=== PATIENT | male | born 1970 | race Caucasian/White ===

== ENCOUNTER 2017-05-23 10:51 | Emergency (ER) | payer BC ==
[2017-05-23 12:46] VITALS: BP 133/79
--- NOTE | 2017-05-23 12:51 | UC ---
Respiratory Complaint HPI - HPI Summary HPI Summary: 46 y/o male presents to the urgent care c/o productive cough, fever, body aches , FARIAS, sore throat, mild wheezing and fatigue since 05/20/2017. Pt reports he has been taking Mucinex to alleviate symptoms. He states one his son's had the flu. Pain is 4/10. Pt denies chest pain, dizziness, abdominal pain, N/V/D. Pt used to be a heavy smoker and quit 2 years ago. - History of Current Complaint Chief Complaint: UCRespiratory Stated Complaint: WEAK CONGESTION WHEEZY COUGH HEADACHE Time Seen by Provider: 05/23/17 12:49 Hx Obtained From: Patient Onset/Duration: Gradual Onset, Lasting Days - 4 days, Still Present, Worse Since - 2 days Timing: Constant Severity Initially: Mild Severity Currently: Moderate Pain Intensity: 4 Pain Scale Used: 0-10 Numeric Character: Cough: Productive, Sputum Description: - yellowish Aggravating Factors: Recumbent Position Alleviating Factors: OTC Meds Associated Signs And Symptoms: Positive: Fever, Chills, Wheezing, URI, Nasal Congestion - Risk Factors Pulmonary Embolism Risk Factors: Negative Cardiac Risk Factors: Hypertension, Diabetes Pseudomonas Risk Factors: Negative Tuberculosis Risk Factors: Negative - Allergies/Home Medications Allergies/Adverse Reactions: Allergies Allergy/AdvReac Type Severity Reaction Status Date / Time No Known Allergies Allergy Verified 05/23/17 12:33 Home Medications: Home Medications Guaifen/Phenyleph/Acetaminophn [Mucinex Sinus-Max Severe Cplt] 2 tab PO Q6H PRN 05/23/17 [History Confirmed 05/23/17] PMH/Surg Hx/FS Hx/Imm Hx Previously Healthy: Yes Endocrine History: Diabetes, Dyslipidemia Cardiovascular History: Hypertension - Surgical History Surgical History: Yes Surgery Procedure, Year, and Place: GALLBLADDER REMOVAL; umbilical hernia 2015 [facility] - Family History Known Family History: Positive: Cardiac Disease, Hypertension, Diabetes - Social History Occupation: Employed Full-time Lives: With Family Alcohol Use: None Substance Use Type: None Smoking Status (MU): Former Smoker When Did the Patient Quit Smoking/Using Tobacco: APR 2014 - Immunization History Most Recent Tetanus Shot: "LONG TIME AGO" Review of Systems Constitutional: Fever, Chills, Fatigue, Other - body aches Skin: Negative Eyes: Negative ENT: Sore Throat, Nasal Discharge, Sinus Congestion Respiratory: Shortness Of Breath, Cough - productive, Other - wheezing Cardiovascular: Negative Gastrointestinal: Negative Genitourinary: Negative Motor: Negative Neurovascular: Negative Musculoskeletal: Negative Neurological: Headache Psychological: Negative Is Patient Immunocompromised?: No All Other Systems Reviewed And Are Negative: Yes Physical Exam - Summary Physical Exam Summary: VITAL SIGNS: Reviewed. GENERAL: Patient is a well developed and nourished obese male who is sitting comfortable in the examining table. Patient is not in any acute respiratory distress. HEAD AND FACE: No signs of trauma. No ecchymosis, hematomas or skull depressions. No sinus tenderness. edematous erythematous nasal mucosa with yellowish discharge, EYES: PERRLA, EOMI x 2, No injected conjunctiva, clear watery eyes, no nystagmus. No photophobia. EARS: Hearing grossly intact. Ear canals and tympanic membranes are within normal limits. MOUTH: Positive pharynx with mild erythema, no exudates,no palatal petechiae. no B/L tonsillar enlargement Uvula in midline. NECK: Supple, trachea is midline, Positive anterior cervical lymphadenopathy, no JVD, no carotid bruit, no c-spine tenderness, neck with full ROM. No meningeal signs, no Kernig's or brudzinskis signs. CHEST: Symmetric, no tenderness at palpation LUNGS: positive breath sound B/L. B/L scattered wheezes and ronchi . No crackles or rales. CVS: Regular rate and rhythm, S1 and S2 present, no murmurs or gallops appreciated. ABDOMEN: Soft, non-tender. No signs of distention. No rebound no guarding, and no masses palpated. Bowel sounds are normal. EXTREMITIES: FROM in all major joints, no edema, no cyanosis or clubbing. NEURO: Alert and oriented x 3. No acute neurological deficits. Speech is normal and follows commands. SKIN: Dry and warm Triage Information Reviewed: Yes Vital Signs: Initial Vital Signs Temp 98.2 F 05/23/17 12:41 Pulse 81 05/23/17 12:41 Resp 20 05/23/17 12:41 BP 133/79 05/23/17 12:41 Pulse Ox 96 05/23/17 12:41 Diagnostic Evaluation - Laboratory O2 Sat by Pulse Oximetry: 96 Respiratory Course/Dx - Course Course Of Treatment: 46 y/o male presents to the urgent care c/o productive cough, fever, body aches, FARIAS, sore throat, mild wheezing and fatigue since 2017. Pt reports he has been taking Mucinex to alleviate symptoms. He states one his son's had the flu. Pain is 4/10. Pt denies chest pain, dizziness, abdominal pain, N/V/D. Pt used to be a heavy smoker and quit 2 years ago.Hx obtained. Pt w/ B/L scattered wheezing and rhonchi on examination, O2Sat:96% .Prednisone PO and Duoneb Tx ordered. Given by Nurse. Pt tollerated well Tx and lungs cleared, O2sat :99%. Influenza A&B ordered: result:negative. chest X-ray ordered, Impression:No acute cardiopulmonary disease observed. Pt used to be a heavy smoker. Pt states feeling better after TX. Pt will be tx for Acute Bronchitis, Rx Doxycycline PO , Prednisone taper dose and Albuterol Inhaler and Tessalon tabs PO to alleviate cough. Strongly advised to f/u with his PCP for further management. He may be developing COPD. Pt understood and agreed with D/ C instructions and left the clinic hemodynamically stable. - Differential Dx/Diagnosis Differential Diagnosis/HQI/PQRI: Asthma, Bronchitis, Exacerbation Of COPD, Influenza, Lower Resp Infection, Sinusitis, Other - pneumonia Provider Diagnoses: 1- COPD exacerbation. 2-Acute bronchitis Discharge - Discharge Plan Condition: Stable Disposition: HOME Prescriptions: Albuterol HFA INHALER* [Ventolin HFA Inhaler*] 1 - 2 puff INH Q4H PRN #1 mdi PRN Reason: Wheezing Benzonatate CAP* [Tessalon 100 MG CAP*] 100 mg PO TID PRN #21 cap PRN Reason: Cough DOXYcycline CAP(*) [DOXYcycline 100MG CAP(*)] 100 mg PO BID #20 cap predniSONE TAB* [Deltasone TAB*] 20 mg PO DAILY #8 tab Patient Education Materials: Acute Bronchitis (ED), COPD (Chronic Obstructive Pulmonary Disease) (ED) Forms: *Work Release Referrals: [facility] [facility]ERRAL [Outside] - 3 Days Additional Instructions: 1-Please take full course of antibiotic to avoid resistance. Take Prednisone tabs PO taper zarate starting tomorrow. 2-Take Tessalon PO tabs as directed and use the albuterol inhaler to alleviate cough. Increase fluid intake, rest and eat well. 3- If symptoms do not improve or worsen or your develop SOB with fever and severe wheezing please go immediately to the ER further evaluation and treatment. 4- F/u with your PCP in 2-3 days for further management to see if you are developing COPD
[2017-05-23] MEDS ORDERED: predniSONE TAB* 20 MG PO ONE (13:00)
[2017-05-23] MEDS ORDERED: Albuterol/Ipratropium NEB.SOL* Albuterol 2.5 MG/Ipratropium 0.5 MG 3 ML INH ONE (13:00)
--- NOTE | 2017-05-23 13:23 | RAD ---
HISTORY: Productive cough, fever, shortness of breath COMPARISONS: None VIEWS: 4: Frontal dual-energy and lateral views of the chest. FINDINGS: CARDIOMEDIASTINAL SILHOUETTE: The cardiomediastinal silhouette is normal. KEVIN: The kevin are normal. PLEURA: The costophrenic angles are sharp. No pleural abnormalities are noted. LUNG PARENCHYMA: The lungs are clear. ABDOMEN: The upper abdomen is clear. There is no subphrenic gas. BONES AND SOFT TISSUES: No bone or soft tissue abnormalities are noted. OTHER: None. IMPRESSION: NO ACTIVE CARDIOPULMONARY DISEASE.
== END 2017-05-23 13:47 | disposition home or self-care (01) ==
LOC: UCCORT 10:51
DX: J44.1 Chronic obstructive pulmonary disease with (acute) exacerbation (principal); J20.9 Acute bronchitis, unspecified; J44.0 Chronic obstructive pulmonary disease with (acute) lower respiratory infection; Z87.891 Personal history of nicotine dependence
CPT/HCPCS: 71046; 87502; 99212; A9270-GY; G0463; J7512

== ENCOUNTER 2017-07-26 19:17 | Emergency (ER) | payer BC ==
--- NOTE | 2017-07-26 19:28 | UC ---
Respiratory Complaint HPI - HPI Summary HPI Summary: 47 yo male presents with sinus pain/pressure/congestion, cough, increased work of breathing, and left ear pain for the last 3-4 days. Getting progressively worse. He has not been taking anything OTC. He is not smoking anymore and hasn' t been for 2+ years. Has been using his albuterol inhaler. Has felt feverish, but has not taken his temperature. Denies chest pain, abdominal pain, n/v/d/c. - History of Current Complaint Stated Complaint: WEAK, TROUBLE BREATHING, HEADACHE/CONGESTION Time Seen by Provider: 07/26/17 19:27 Hx Obtained From: Patient Onset/Duration: Gradual Onset Timing: Constant Severity Initially: Mild Severity Currently: Moderate Pain Intensity: 7 Pain Scale Used: 0-10 Numeric Character: Cough: Productive - Allergies/Home Medications Allergies/Adverse Reactions: Allergies Allergy/AdvReac Type Severity Reaction Status Date / Time No Known Allergies Allergy Verified 05/23/17 12:33 PMH/Surg Hx/FS Hx/Imm Hx Endocrine History: Diabetes Cardiovascular History: Hypertension Respiratory History: COPD GI/ History: Gastroesophageal Reflux - Surgical History Surgical History: Yes Surgery Procedure, Year, and Place: GALLBLADDER REMOVAL; umbilical hernia 2015 [facility] - Family History Known Family History: Positive: Cardiac Disease, Hypertension, Diabetes - Social History Occupation: Employed Full-time Lives: With Family Alcohol Use: None Substance Use Type: None Smoking Status (MU): Former Smoker When Did the Patient Quit Smoking/Using Tobacco: APR 2014 - Immunization History Most Recent Tetanus Shot: "LONG TIME AGO" Review of Systems Constitutional: Fatigue Skin: Negative Eyes: Negative ENT: Ear Ache, Sinus Congestion, Sinus Pain/Tenderness Respiratory: Shortness Of Breath, Cough Cardiovascular: Negative Gastrointestinal: Negative Neurovascular: Negative Neurological: Headache Psychological: Negative All Other Systems Reviewed And Are Negative: Yes Physical Exam - Summary Physical Exam Summary: GENERAL: NAD. Obese SKIN: No rashes, sores, lesions, or open wounds. HEENT: Head: AT/NC Eyes: Conjunctiva clear without inflammation or discharge. Ears: Hearing grossly normal. Left TM with mild erythema and bulging. No canal edema or drainage. Nose: Nasal mucosa mildly swollen and erythematous with clear discharge. TTP maxillary and frontal sinus. Throat: Posterior oropharynx without exudates, erythema, or tonsillar enlargement. Uvula midline. NECK: Supple. Nontender. No lymphadenopathy. CHEST: Mild wheezing throughout. Moderate wheezing and rhonci right lung. Increased effort to breath without accessory muscle use. CV: RRR. Without m/r/g. Pulses intact. NEURO: Alert. CN II-XII grossly intact. PSYCH: Age appropriate behavior. Triage Information Reviewed: Yes Respiratory Course/Dx - Course Course Of Treatment: CXR: IMPRESSION: No evidence for pneumonia or other acute intrathoracic process. Duoneb: Significant subjective improvement s/p. Breathing more comfortably. Lung sounds improved - mild wheezes. Rx for prednisone and augmentin. - Differential Dx/Diagnosis Provider Diagnoses: Bronchitis Discharge - Sign-Out/Discharge Documenting (check all that apply): Discharge/Admit/Transfer - Discharge Plan Condition: Stable Disposition: HOME Prescriptions: Amoxicillin/Clavulanate TAB* [Augmentin TAB 875*] 875 mg PO BID #20 tab predniSONE TAB* [Deltasone TAB*] 50 mg PO DAILY #5 tab Patient Education Materials: Acute Bronchitis (ED) Forms: *Work Release Referrals: Non Staff,Doctor [Primary Care Provider] - Additional Instructions: If you develop a fever, shortness of breath, chest pain, new or worsening symptoms - please call your PCP or go to the ED. Your blood pressure was high at todays visit. Please see your primary provider within 4 weeks for recheck and re-evaluation. 1) Please monitor your blood sugars closely as prednisone may increase your sugar - Billing Disposition and Condition Condition: STABLE Disposition: HOME
[2017-07-26 19:31] VITALS: BP 139/83
[2017-07-26] MEDS ORDERED: Albuterol/Ipratropium NEB.SOL* Albuterol 2.5 MG/Ipratropium 0.5 MG 3 ML INH ONE (19:34)
--- NOTE | 2017-07-26 20:01 | RAD ---
INDICATION: Productive cough, shortness of breath. Fever. COMPARISON: May 23, 2017 TECHNIQUE: Dual energy PA and routine lateral views of the chest were obtained. REPORT: The degree of inspiration appears suboptimal compared with the prior exam. Clear lungs and pleural spaces. Negative for pneumothorax. The heart, pulmonary vasculature, and mediastinal contours are unremarkable. Multilevel mild thoracic degenerative spondylosis. IMPRESSION: No evidence for pneumonia or other acute intrathoracic process.
== END 2017-07-26 20:12 | disposition home or self-care (01) ==
LOC: UCCORT 19:17
DX: J40 Bronchitis, not specified as acute or chronic (principal); Z87.891 Personal history of nicotine dependence
CPT/HCPCS: 71046; 99212; A9270-GY; G0463